=== PATIENT | male | born 1980 | race Hispanic/Latino ===

== ENCOUNTER 2018-09-03 19:46 | Emergency (ER) | payer OTHER ==
--- OUTSIDE RECORDS SUMMARY | 2018-09-03 19:48 | XMS REPORT | Clinical Summary ---
:1980 Author Organization [facility] Address [address] [place] [address] Care Team Providers Name Role Phone Tyler Sanches MD Primary Care Provider Allergies No Known Allergies Medications Medication Sig Dispensed Refills Start Date End Date Status folic acid (FOLVITE) 1 Take 1 tablet 30 tablet 0 08/15/2018 08/15/2019 Active MG tablet (1 mg total) by mouth daily. multivitamin with Take 1 tablet 30 tablet 0 08/15/2018 08/15/2019 Active minerals tablet by mouth daily. traMADol (ULTRAM) 50 Take 1 tablet 14 tablet 0 08/14/2018 08/21/2018 mg tablet (50 mg total) by mouth 2 (two) times a day as needed for severe pain for up to 7 days. azithromycin Take 1 tablet 4 tablet 0 08/14/2018 08/18/2018 (ZITHROMAX) 500 MG (500 mg total) tablet by mouth daily for 4 days. Active Problems Problem Noted Date Sickle cell pain crisis 08/11/2018 Encounters Date Type Specialty Care Team Description 08/11/2018 - Emergency General Internal Adilene Pereira Chest pain with minimal risk of acute coronary syndrome (Primary Dx); 08/14/2018 Medicine MD Froy Acute chest syndrome (HCC); Mo Cary Sickle cell pain crisis (HCC) MD Tamera after 09/02/2017 Social History Tobacco Use Types Packs/Day Years Used Date Never Smoker Smokeless Tobacco: Never Used Alcohol Use Drinks/Week oz/Week Comments No Alcohol Habits Answer Date Recorded How often do you have a drink containing alcohol? Never 08/11/2018 How many drinks containing alcohol do you have on a typical Not asked day when you are drinking? How often do you have six or more drinks on one occasion? Not asked Sex Assigned at Date Recorded Not on file Job Start Date Occupation Industry Not on file Not on file Not on file Travel History Travel Start Travel End No recent travel history available. Last Filed Vital Signs Vital Sign Reading Time Taken Blood Pressure 106/59 08/14/2018 12:15 PM [employer] Pulse 84 08/14/2018 12:15 PM [employer] Temperature 37 C (98.6 F) 08/14/2018 12:15 PM [employer] Respiratory Rate 18 08/14/2018 12:15 PM [employer] Oxygen Saturation 97% 08/14/2018 12:15 PM [employer] Inhaled Oxygen Concentration - - Weight 50.8 kg (111 lb 14.4 oz) 08/14/2018 4:30 AM [employer] Height 167.6 cm (5' 6") 08/11/2018 1:13 PM [employer] Body Mass Index 18.06 08/14/2018 4:30 AM [employer] Plan of Treatment Health Maintenance Due Date Last Done Comments INFLUENZA VACCINE 01/21/2018 Procedures Procedure Name Priority Date/Time Associated Comments Diagnosis SMEAR REVIEW Routine 08/12/2018 5:29 Results for this AM [employer] procedure are in the results section. ESTIMATED GFR Routine 08/12/2018 5:29 Results for this AM [employer] procedure are in the results section. COMPREHENSIVE METABOLIC Routine 08/12/2018 5:29 Results for this PANEL AM [employer] procedure are in the results section. HC COMPLETE BLD COUNT Routine 08/12/2018 5:29 Results for this W/AUTO DIFF AM [employer] procedure are in the results section. LIPID PANEL Routine 08/12/2018 5:29 Results for this AM [employer] procedure are in the results section. ECG 12-LEAD Routine 08/11/2018 4:35 PM [employer] TROPONIN Timed 08/11/2018 10:34 Results for this AM [employer] procedure are in the results section. ECG 12-LEAD Routine 08/11/2018 10:22 AM [employer] ECG ED PRELIMINARY Routine 08/11/2018 6:32 Results for this INTERPRETATION AM [employer] procedure are in the results section. URINALYSIS SCREEN AND STAT 08/11/2018 6:00 Results for this MICROSCOPY, WITH REFLEX AM [employer] procedure are in TO CULTURE the results section. URINE CULTURE STAT 08/11/2018 6:00 Results for this AM [employer] procedure are in the results section. XR CHEST 2 VW STAT 08/11/2018 5:51 Results for this AM [employer] procedure are in the results section. SMEAR REVIEW STAT 08/11/2018 5:30 Results for this AM [employer] procedure are in the results section. ESTIMATED GFR STAT 08/11/2018 5:30 Results for this AM [employer] procedure are in the results section. TYPE AND SCREEN Routine 08/11/2018 5:30 Results for this AM [employer] procedure are in the results section. B NATRIURETIC PEPTIDE STAT 08/11/2018 5:30 Results for this AM [employer] procedure are in the results section. TROPONIN STAT 08/11/2018 5:30 Results for this AM [employer] procedure are in the results section. LIPASE LEVEL STAT 08/11/2018 5:30 Results for this AM [employer] procedure are in the results section. COMPREHENSIVE METABOLIC STAT 08/11/2018 5:30 Results for this PANEL AM [employer] procedure are in the results section. RETICULOCYTE COUNT STAT 08/11/2018 5:30 Results for this AM [employer] procedure are in the results section. PARTIAL THROMBOPLASTIN STAT 08/11/2018 5:30 Results for this TIME (PTT) AM [employer] procedure are in the results section. PROTHROMBIN TIME WITH STAT 08/11/2018 5:30 Results for this INR AM [employer] procedure are in the results section. HC COMPLETE BLD COUNT STAT 08/11/2018 5:30 Results for this W/AUTO DIFF AM [employer] procedure are in the results section. ECG 12-LEAD STAT 08/11/2018 4:57 AM [employer] after 09/02/2017 Results Smear review (08/12/2018 5:29 AM [employer])Only the most recent of2 resultswithin the time period is included. Platelet slide review Increased (A) [facility] Anisocytosis Marked (A) [facility] Polychromasia Marked (A) [facility] Schistocytes Occasional [facility] Target cells Moderate (A) [facility] Spherocytes Occasional [facility] Ovalocytes Moderate [facility] Sickle cells Moderate (A) [facility] [place] bodies Occasional [facility] Enlarged platelets Moderate (A) [facility] Giant platelets Occasional [facility] Hemoglobin C crystals Occasional (A) [facility] Folded RBCs Moderate (A) [facility] Toxic granulation Slight [facility] Performing Organization Address City/State/Zipcode Phone Number [facility] DEPARTMENT OF PATHOLOGY [id number] [place] [address] AND [facility] [id number] [place] [address] Estimated GFR (08/12/2018 5:29 AM [employer])Only the most recent of2 resultswithin the time period is included. Estimated GFR >=90 mL/min/1.73 m2 [facility] Comment: [facility] CatergoryUnitsInterpretation G1 >=90 Normal or high G2 60-89Mildly decreased [id number] to moderately decreased [id number] to severely decreased G4 15-29Severely decreased G5 <15Kidney failure The eGFR was calculated using the Chronic Kidney Disease Epidemiology Collaboration (CKD-EPI) equation. Interpretation is based on recommendations of the National Kidney Foundation-Kidney Disease Outcomes Quality Initiative (NKF-KDOQI) published in 2014. Specimen Plasma specimen Performing Organization Address City/State/Zipcode Phone Number [facility] DEPARTMENT OF PATHOLOGY [address] [place] [address] CBC with platelet and differential (08/12/2018 5:29 AM [employer])Only the most recent of2 resultswithin the time period is included. WBC 17.8 (H)Comment: WBC 4.5 - 11.0 k/uL [facility] SUGAR was corrected for NRBCs [facility] RBC 1.64 (L) 4.40 - 6.00 m/uL [facility] HGB 6.2 (LL) 14.0 - 18.0 g/dL [facility] Comment: [facility] Called Hgb and Hct results with readback to Emily Neal 08/12/2018 06:16 HCT 18.0 (LL) 41.0 - 51.0 % [facility] MCV 109.8 (H) 82.0 - 100.[address] [facility] MCH 37.8 (H) 27.0 - 34.[address] [facility] MCHC 34.4 31.0 - 37.0 g/dL [facility] RDW - SD 77.0 (H) 37.0 - 55.[address] [facility] MPV 11.0 6.9 - 11.[address] [facility] Platelet count 538 (H) 150 - 400 K/uL [facility] Nucleated RBC 1.60 /[address] [facility] Neutrophils 70.3 (H) 39.0 - 69.0 % [facility] Lymphocytes 15.2 (L) 25.0 - 45.0 % [facility] Monocytes 9.3 0.0 - 10.0 % [facility] Eosinophils 4.5 0.0 - 5.0 % [facility] Basophils 0.1 0.0 - 1.0 % [facility] Immature granulocytes 0.6 0.0 - 1.0 % [facility] Specimen Blood Performing Organization Address City/State/Zipcode Phone Number [facility] DEPARTMENT OF PATHOLOGY [address] [place] [address] AND GENOMIC MEDICINE [facility] [address] [place] [address] HOSPITAL Lipid panel (08/12/2018 5:29 AM [employer]) Cholesterol 125 0 - 199 mg/dL [facility] Triglycerides 101 0 - 149 mg/dL [facility] HDL cholesterol 44 40 - 99,999 [facility]/dL [facility] LDL cholesterol 80 0 - 99 mg/dL [facility] Lipid panel See below [facility] interpretation Comment: [facility] Total Cholesterol (mg/dL) <200 Desirable 071-807Howhowpikl-kylu >=240High Triglycerides (mg/dL) <150 Normal 468-305Pqdeyempok-rkee 200-499High >=500Very high HDL Cholesterol (mg/dL) <40Low (male) <50Low (female) LDL Cholesterol (mg/dL) <100 Optimal 100-129Near or above optimal 735-629Lworzvgijb-fmrw 160-189High >=190Very high Risk Catergories that modify LDL goals. Risk CatergoriesLDL goal (mg/dL) CHD and CHD risk equivalent<100 (10-year risk >20%) Multiple (2+) risk factors <130 (10-year risk=<20%) 0-1 risk factors <160 (<10-year risk) Defining levels of lipids in metabolic syndrome Triglycerides>=150 mg/dL HDL Cholesterol Men<40 mg/dL Women<50 mg/dL Non-HDL cholesterol is a second target for therapy in persons with high triglycerides (>=200 mg/dL) Specimen Plasma specimen Performing Organization Address City/State/Zipcode Phone Number [facility] DEPARTMENT OF PATHOLOGY [address] [place] [address] AND GENOMIC MEDICINE [address] Comprehensive metabolic panel (08/12/2018 5:29 AM [employer])Only the most recent of2 resultswithin the time period is included. Sodium 141 135 - 148 mEq/L [facility] Potassium 4.8 3.5 - 5.0 mEq/L [facility] Chloride 108 98 - 112 mEq/L [facility] CO2 22 (L) 24 - 31 mEq/L [facility] Anion gap 11@ANIO 7 - 15 mEq/L [facility] BUN 7 6 - 20 mg/dL [facility] Creatinine 0.57 (L) 0.70 - 1.20 mg/dL [facility] Glucose 111 (H) 65 - 99 mg/dL [facility] Calcium 9.4 8.3 - 10.2 mg/dL [facility] Protein 6.9 6.3 - 8.3 g/dL [facility] Albumin 4.3 3.5 - 5.0 g/dL [facility] A/G ratio 1.7 0.7 - 3.[address] [facility] Alkaline phosphatase 100 40 - 129 U/L [facility] AST 38 10 - 50 U/L [facility] ALT 15 5 - 50 U/L [facility] Total bilirubin 2.9 (H) 0.2 - 1.2 mg/dL [facility] Specimen Plasma specimen Performing Organization Address City/State/Zipcode Phone Number [facility] DEPARTMENT OF PATHOLOGY [address] [place] [address] AND GENOMIC MEDICINE [facility] [address] [place] [address] HOSPITAL Troponin (08/11/2018 10:34 AM [employer])Only the most recent of2 resultswithin the time period is included. Troponin <0.30 0.00 - 0.30 ng/mL [facility] Comment: HOSPITAL 0.11 - 1.49 ng/mlMay indicate increased risk of acute coronary syndrome. >=1.5 ng/mlConsistent with acute myocardial infarction. The diagnostic value of a single normal or non-diagnostic result is questionable.Serial samples at 2-6 hour intervals are required to rule out acute myocardial injury. Specimen Plasma specimen Performing Organization Address City/State/Zipcode Phone Number [facility] DEPARTMENT OF PATHOLOGY [address] [place] [address] AND GENOMIC MEDICINE [facility] [id number] ECG ED Preliminary Interpretation - Not an Order (08/11/2018 6:32 AM [employer]) Narrative Performed At Adilene Pereira MD 08/11/2018 11:25 AM ECG ED Preliminary Interpretation - Not an Order Performed by: Adilene Pereira MD Authorized by: Adilene Pereira MD ECG reviewed by ED Physician in the absence of a software packager: yes Previous ECG: Previous ECG:Unavailable Interpretation: Interpretation: normal Rate: ECG rate:81 ECG rate assessment: normal Rhythm: Rhythm: sinus rhythm Ectopy: Ectopy: none QRS: QRS axis:Normal QRS intervals:Normal Conduction: Conduction: normal ST segments: ST segments:Normal T waves: T waves: normal Urinalysis screen and microscopy, with reflex to culture (08/11/2018 6:00 AM [employer]) Specimen site Clean catch [facility] Color, UA Yellow [facility] Appearance, UA Clear [facility] Specific gravity, UA 1.010 1.001 - 1.[address] [facility] pH, UA 6.0 5.0 - 9.[address] [facility] Protein, UA Negative Negative [facility] Glucose, UA Negative Negative [facility] Ketones, UA Trace (A) Negative [facility] Bilirubin, UA Negative Negative [facility] Blood, UA Negative Negative [facility] Nitrite, UA Negative Negative [facility] Urobilinogen, UA <2.0 <2.0 E.U./dL [facility] Leukocyte esterase, UA Negative Negative [facility] Round epithelial cells, UA <1 0 - 5 /HPF [facility] WBC, UA 1 0 - 1 /HPF [facility] RBC, UA None seen 0 - 5 /HPF [facility] Bacteria, UA None seen None seen [facility] Yeast, UA None seen [facility] Yeast with pseudohyphae, UA None seen [facility] Specimen Urine Performing Organization Address City/State/Zipcode Phone Number [facility] DEPARTMENT OF PATHOLOGY [id number] [place] [address] AND [facility] [id number] [place] [address] Urine culture (08/11/2018 6:00 AM [employer]) Urine culture SEE COMMENTComment: Bacteriuria [facility] screen negative. HOSPITAL Performing Organization Address City/[facility] Cent[facility]ode Phone Number [facility] DEPARTMENT OF PATHOLOGY [id number] [place] [address] AND [facility] [id number] [place] [address] XR Chest 2 Vw (08/11/2018 5:51 AM [employer]) Narrative Performed At EXAMINATION:XR CHEST 2 VW RADIANT CLINICAL HISTORY: 38 years Male chest pain [facility] COMPARISON: 08/01/2013 IMPRESSION: 1.Heart size is at the upper limits of normal to minimally prominent. The central vasculature is normal. A previous left chest port has been removed. 2.There is some very mild nonspecific interstitial prominence in the mid lungs and bases, right greater than left. No confluent consolidation or effusion. The lungs are adequately inflated. 3.Cholecystectomy clips. Bony changes in the vertebral bodies related to patient's sickle cell disease. [facility]-[id number] Procedure Note Hm Interface, Radiology Results Incoming - 08/11/2018 6:02 AM [employer] EXAMINATION: XR CHEST 2 VW CLINICAL HISTORY: 38 years Male chest pain [facility] COMPARISON: 08/01/2013 IMPRESSION: 1. Heart size is at the upper limits of normal to minimally prominent. The central vasculature is normal. A previous left chest port has been removed. 2. There is some very mild nonspecific interstitial prominence in the mid lungs and bases, right greater than left. No confluent consolidation or effusion. The lungs are adequately inflated. 3. Cholecystectomy clips. Bony changes in the vertebral bodies related to patient's sickle cell disease. [facility]-[id number] Performing Organization Address City/[facility]/Zipcode Phone Number [facility] [address] [place] [address] Partial thromboplastin time, activated (08/11/2018 5:30 AM [employer]) PTT 42.1 (H) 23.0 - 36.0 sec [facility] Comment: [facility] PTT therapeutic range for unfractionated heparin is 61.0-112.0 seconds which corresponds to Anti-Xa 0.3-0.7 U/ml. Specimen Blood Performing Organization Address [facility]/Zipcode Phone Number [facility] DEPARTMENT OF PATHOLOGY [address] [place] [address] Prothrombin time with INR (08/11/2018 5:30 AM [employer]) Prothrombin time 14.6 (H) 11.5 - 14.[address] [facility] INR 1.2 [facility] Comment: [facility] The International Normalized Ratio (INR) is a therapeutic monitoring tool for patients who are stable on oral anticoagulant therapy. An INR of 2.0-3.0 is suggested for deep vein thrombosis/pulmonary embolism. Specimen Blood Performing Organization Address [facility] Centercotn Phone Number [facility] DEPARTMENT OF PATHOLOGY [address] [place] [address] Reticulocyte count (08/11/2018 5:30 AM [employer]) Retic %, auto 28.0 (A) 0.5 - 2.1 % [facility] Retic absolute, auto 0.5745 (H) 0.0220 - 0.1260 m/uL [facility] Specimen Blood Performing Organization Address [facility] Centercode Phone Number [facility] DEPARTMENT OF PATHOLOGY [address] [place] [address] [place] [address] HOSPITAL Type and screen (08/11/2018 5:30 AM [employer]) ABO grouping O [facility] Rh type POS [facility] Antibody screen (gel) NEG [facility] Specimen Blood Performing Organization Address City/[facility]/Zipcode Phone Number [facility] DEPARTMENT OF PATHOLOGY [address] [place] [address] [place] [address] HOSPITAL B natriuretic peptide (08/11/2018 5:30 AM [employer]) BNP 49 0 - 100 pg/mL [facility] Specimen Blood Performing Organization Address City/State/Zipcode Phone Number [facility] DEPARTMENT OF PATHOLOGY [address] [place] [address] Lipase level (08/11/2018 5:30 AM [employer]) Lipase 13 13 - 60 U/L [facility] Specimen Plasma specimen Performing Organization Address City/[facility] Centercode Phone Number [facility] DEPARTMENT OF PATHOLOGY [address] [place] [address] [place] [address] HOSPITAL after 09/02/2017 Insurance Payer Benefit Plan / Group Subscriber ID Type Phone Address MEDICARE MEDICARE PART A AND B xxxxxxxxxx Medicare [place], [place]
--- OUTSIDE RECORDS SUMMARY | 2018-09-03 19:49 | XMS REPORT ---
:1980 Author Organization [facility] Address [address] [place] [address] Dr. Gillis [address] [place] [id number] Care Team Providers Name Role Phone DR SHYLA ESPINOZA Unavailable Unavailable MAYTE PHILLIP Unavailable Unavailable DR BRUNO BELCHER Unavailable Unavailable Problems This patient has no known problems. Allergies, Adverse Reactions, Alerts This patient has no known allergies or adverse reactions. Medications This patient has no known medications. Encounters Start End Encounter Admission Attending Care Care Encounter Date/Time Date/Time Type Type Clinicians Facility Department ID 2018-02-17 2018-02-18 Inpatient E [facility] [id number] 11:41:00 17:12:00 SHYLA 2017-09-11 2017-09-11 Emergency [facility] [id number] 19:00:00 21:26:00 MAYTE 2016-10-16 2016-10-16 Emergency E [facility] [id number] 10:10:00 10:47:00 WASIM Results Test Description Test Time Test Comments Text Results Atomic Results Result Comments BLOOD CULTURE 2018-02-23 07:57:00 Test Item Value Reference Range Comments Culture Observations (test code=COB1) NO GROWTH AFTER 5 DAYS BLOOD [id number] 07:57:00 Test Item Value Reference Range Comments Culture Observations (test code=COB1) NO GROWTH AFTER 5 DAYS BASIC METABOLIC PANEL *WW*2018-02-18 10:29:00 Test Item Value Reference Range Comments GLUCOSE (test code=06D) 96 mg/dL 75-100 SODIUM (test code=01A) 143 mmol/L 136-145 POTASSIUM (test code=01B) 3.5 mmol/L 3.6-5.1 CHLORIDE (test code=04A) 112 mmol/L 98-107 CO2 (test code=02A) 21 mmol/L 22-32 ANION GAP (test code=ANG) 13.7 mmol/L BUN (test code=05D) 5 mg/dL 7-18 CREATININE (test code=03E) 0.4 mg/dL 0.7-1.3 BUN/CREA (test code=BCR) 12 12-20 CALCIUM (test code=09D) 8.0 mg/dL 8.3-9.5 CBC (INCLUDES AUTOMATED DIFFERENTIAL)*[id number] 10:21:00 Test Item Value Reference Range Comments WBC (test code=WBC) 17.4 10\S\3/uL 4.5-11.0 RBC (test code=RBC) 1.54 10\S\6/uL 4.30-5.70 HGB (test code=HBG) 5.8 g/dL 14.0-18.0 HCT (test code=HCT) 15.9 % 35.0-46.0 MCV (test code=MCV) 103.2 fL 80.0-94.0 MCH (test code=MCH) 37.7 pg 27.0-31.0 MCHC (test code=MCHC) 36.5 g/dL 32.0-36.0 RDW (test code=RDW) 16.9 % 11.5-14.5 PLT (test code=PLT) 390 10\S\3/uL 130-400 MPV (test code=MPV) 10.6 fL 9.4-12.4 NEUTROP # (test code=NE#) 13.4 10\S\3/uL 2.0-8.0 LYMPH # (test code=LY#) 2.0 10\S\3/uL 1.2-4.0 MONOCYTE # (test code=MO#) 1.2 10\S\3/uL 0.0-1.1 EOSINOPH # (test code=EO#) 0.7 10\S\3/uL 0.0-0.7 BASOPHIL # (test code=BA#) 0.0 10\S\3/uL 0.0-0.3 IG # (test code=IG#) 0.12 10\S\3/uL 0.00-0.06 NRBC # (test code=NRBC#) 0.54 10\S\3/uL 0.00-0.01 NEUTROPH % (test code=NE%) 77.1 % 35.0-73.0 LYMPH % (test code=LY%) 11.5 % 20.0-55.0 MONO % (test code=MO%) 6.7 % 2.5-10.0 EOSINOPH % (test code=EO%) 3.9 % 0.0-5.0 BASOPHIL % (test code=BA%) 0.1 % 0.0-2.0 IG % (test code=IG%) 0.7 % 0.0-0.8 NRBC% (test code=NRBC%) 3.1 % 0.0-0.2 MANDIFF (test code=WMDIFF) NO NO RBC MORPH (test code=WRBCMOR) NORMAL LDH-LACTIC DEHYDROGENASE WW2018-02-17 06:49:00 Test Item Value Reference Range Comments LDH (test code=33A) 721 IU/L 100-190 COMPREHENSIVE METABOLIC JANG *WW*2018-02-17 05:37:00 Test Item Value Reference Range Comments GLUCOSE (test code=06D) 128 mg/dL 75-100 SODIUM (test code=01A) 144 mmol/L 136-145 POTASSIUM (test code=01B) 3.5 mmol/L 3.6-5.1 CHLORIDE (test code=04A) 113 mmol/L 98-107 CO2 (test code=02A) 22 mmol/L 22-32 ANION GAP (test code=ANG) 12.7 mmol/L BUN (test code=05D) 9 mg/dL 7-18 CREATININE (test code=03E) 0.5 mg/dL 0.7-1.3 BUN/CREA (test code=BCR) 19 12-20 CALCIUM (test code=09D) 7.8 mg/dL 8.3-9.5 BILI TOTAL (test code=11A) 3.4 mg/dL 0.2-1.0 PROTEIN (test code=07D) 6.5 g/dL 6.4-8.2 ALBUMIN (test code=08D) 3.7 g/dL 3.5-4.8 GLOBULIN (test code=GLB) 2.8 g/dL 1.5-3.8 ALB/GLOB (test code=AGRR) 1.3 1.0-2.6 ALK PHOS (test code=35A) 87 IU/L 42-121 AST (test code=30A) 59 IU/L <=42 ALT (test code=31A) 25 IU/L <=78 CBC (INCLUDES AUTOMATED DIFFERENTIAL)*[id number] 04:54:00 Test Item Value Reference Range Comments WBC (test code=WBC) 21.9 10\S\3/uL 4.5-11.0 RBC (test code=RBC) 1.50 10\S\6/uL 4.30-5.70 HGB (test code=HBG) 5.6 g/dL 14.0-18.0 HCT (test code=HCT) 15.7 % 35.0-46.0 MCV (test code=MCV) 104.7 fL 80.0-94.0 MCH (test code=MCH) 37.3 pg 27.0-31.0 MCHC (test code=MCHC) 35.7 g/dL 32.0-36.0 RDW (test code=RDW) 18.1 % 11.5-14.5 PLT (test code=PLT) 390 10\S\3/uL 130-400 MPV (test code=MPV) 10.3 fL 9.4-12.4 NEUTROP # (test code=NE#) 19.6 10\S\3/uL 2.0-8.0 LYMPH # (test code=LY#) 0.9 10\S\3/uL 1.2-4.0 MONOCYTE # (test code=MO#) 1.1 10\S\3/uL 0.0-1.1 EOSINOPH # (test code=EO#) 0.1 10\S\3/uL 0.0-0.7 BASOPHIL # (test code=BA#) 0.0 10\S\3/uL 0.0-0.3 IG # (test code=IG#) 0.16 10\S\3/uL 0.00-0.06 NRBC # (test code=NRBC#) 0.88 10\S\3/uL 0.00-0.01 NEUTROPH % (test code=NE%) 89.4 % 35.0-73.0 LYMPH % (test code=LY%) 4.2 % 20.0-55.0 MONO % (test code=MO%) 5.2 % 2.5-10.0 EOSINOPH % (test code=EO%) 0.4 % 0.0-5.0 BASOPHIL % (test code=BA%) 0.1 % 0.0-2.0 IG % (test code=IG%) 0.7 % 0.0-0.8 NRBC% (test code=NRBC%) 4.0 % 0.0-0.2 MANDIFF (test code=WMDIFF) NO NO RBC MORPH (test code=WRBCMOR) NORMAL CBC (INCLUDES AUTOMATED DIFFERENTIAL)*[id number] 03:45:00 Test Item Value Reference Range Comments WBC (test code=WBC) 21.4 10\S\3/uL 4.5-11.0 RBC (test code=RBC) 1.49 10\S\6/uL 4.30-5.70 HGB (test code=HBG) 5.5 g/dL 14.0-18.0 HCT (test code=HCT) 15.7 % 35.0-46.0 MCV (test code=MCV) 105.4 fL 80.0-94.0 MCH (test code=MCH) 36.9 pg 27.0-31.0 MCHC (test code=MCHC) 35.0 g/dL 32.0-36.0 RDW (test code=RDW) 18.4 % 11.5-14.5 PLT (test code=PLT) 380 10\S\3/uL 130-400 MPV (test code=MPV) 10.6 fL 9.4-12.4 NEUTROP # (test code=NE#) 18.6 10\S\3/uL 2.0-8.0 LYMPH # (test code=LY#) 1.1 10\S\3/uL 1.2-4.0 MONOCYTE # (test code=MO#) 1.2 10\S\3/uL 0.0-1.1 EOSINOPH # (test code=EO#) 0.2 10\S\3/uL 0.0-0.7 BASOPHIL # (test code=BA#) 0.0 10\S\3/uL 0.0-0.3 IG # (test code=IG#) 0.15 10\S\3/uL 0.00-0.06 NRBC # (test code=NRBC#) 0.85 10\S\3/uL 0.00-0.01 NEUTROPH % (test code=NE%) 87.3 % 35.0-73.0 LYMPH % (test code=LY%) 5.1 % 20.0-55.0 MONO % (test code=MO%) 5.8 % 2.5-10.0 EOSINOPH % (test code=EO%) 1.0 % 0.0-5.0 BASOPHIL % (test code=BA%) 0.1 % 0.0-2.0 IG % (test code=IG%) 0.7 % 0.0-0.8 NRBC% (test code=NRBC%) 4.0 % 0.0-0.2 MANDIFF (test code=WMDIFF) NO NO RBC MORPH (test code=WRBCMOR) NORMAL XR PICC LINE INSERTION PNL*WW*2018-02-16 17:29:37EXAMINATION: Fluoroscopic and ultrasound-guided PICC line placement.LOCATION: D4.HISTORY: R09.89: OTHER SPECIFIED SYMPTOMS AND SIGNS INVOLVING THE CIRCULATORYAND RESPIRATORY SYSTEMSSEDATION: The patient did not require conscious sedation for the procedure.RADIATION DOSE: Fluoroscopy time:18 sec. Images obtained: 1.ANTIBIOTICS: None. Not indicated.TECHNIQUE: The risks, benefits, and alternatives were discussed and informedconsent was obtained. Prior to beginning the procedure, Agate Protocol wasused to confirm the patient's identity and planned procedure. Maximum sterilebarriers including cap, mask, hand hygiene, sterile gloves, sterile gown, largesterile drape and cutaneous antisepsis wereused.The skin over the right basilic vein was sterilely prepped, draped, andinfiltrated with lidocaine.Prior to the procedure, the target vessel was evaluated by ultrasound. Animage of the patent vessel was recorded and saved to PACS. After sterile prep,this vessel was accessed with a micropuncture needle using real-time ultrasoundguidance. A guidewire and catheter were then passed centrally usingfluoroscopicguidance. The intravascular length from the access site to the right atriumwas assessed. The catheter was trimmed at 34 cm.After dilating the tract, a dual lumen PICC was inserted over theguidewire andthrough a peel away sheath. The catheter was flushed and secured in place withnonabsorbable suture. A sterile dressing was applied. ESTIMATED BLOOD LOSS: Less than 10 milliliters.COMPLICATIONS: None.DISCHARGED TO: Inpatient unit.FINDINGS: Ultrasound demonstrates a patent right basilic vein.The final fluoroscopic image demonstrates the catheter with its tip at thecavoatrial junction / upper right atrium. No complications are seen.IMPRESSION: Successful non-tunneled right upper extremity PICC line placement.PLAN: The catheter is ready for immediate use. When treatment is completed,this catheter can be removed at the bedside according to standard hospitalprotocol.U/S GUIDANCE*WW*2018-02-16 17:29:37EXAMINATION: Fluoroscopic and ultrasound-guided PICC line placement.LOCATION: D4.HISTORY: R09.89: OTHER SPECIFIED SYMPTOMS AND SIGNS INVOLVING THE CIRCULATORYAND RESPIRATORY SYSTEMSSEDATION: The patient did not require conscious sedation for the procedure.RADIATION DOSE: Fluoroscopy time:18 sec. Images obtained: 1.ANTIBIOTICS: None. Not indicated.TECHNIQUE: The risks, benefits, and alternatives were discussed and informedconsent was obtained. Prior to beginning the procedure, Agate Protocol wasused to confirm the patient's identity and planned procedure. Maximum sterilebarriers including cap, mask, hand hygiene, sterile gloves, sterile gown, largesterile drape and cutaneous antisepsis wereused.The skin over the right basilic vein was sterilely prepped, draped, andinfiltrated with lidocaine.Prior to the procedure, the target vessel was evaluated by ultrasound. Animage of the patent vessel was recorded and saved to PACS. After sterile prep,this vessel was accessed with a micropuncture needle using real-time ultrasoundguidance. A guidewire and catheter were then passed centrally usingfluoroscopicguidance. The intravascular length from the access site to the right atriumwas assessed. The catheter was trimmed at 34 cm.After dilating the tract, a dual lumen PICC was inserted over theguidewire andthrough a peel away sheath. The catheter was flushed and secured in place withnonabsorbable suture. A sterile dressing was applied. ESTIMATED BLOOD LOSS: Less than 10 milliliters.COMPLICATIONS: None.DISCHARGED TO: Inpatient unit.FINDINGS: Ultrasound demonstrates a patent right basilic vein.The final fluoroscopic image demonstrates the catheter with its tip at thecavoatrial junction / upper right atrium. No complications are seen.IMPRESSION: Successful non-tunneled right upper extremity PICC line placement.PLAN: The catheter is ready for immediate use. When treatment is completed,this catheter can be removed at the bedside according to standard hospitalprotocol.URINALYSIS WITH MICRO 2018-02-16 09:20:00 Test Item Value Reference Range Comments COLOR (test code=COLU) YELLOW YELLOW CLARITY (test code=CLA) SLT HAZY CLEAR GLUCOSE UR (test code=UA GLUCOSE) NEGATIVE NEGATIVE BILI UR (test code=BILE) 1+ NEGATIVE KETONES UR (test code=GLYNN) NEGATIVE NEGATIVE SP GRAVITY (test code=SPGR) 1.015 1.005-1.030 PH UR (test code=PH) 6.0 4.5-8.0 PROTEIN UR (test code=PU) TRACE NEGATIVE UROBIL UR (test code=UROQ) 0.2 EU/dL 0.2-1.0 NITRITE UR (test code=NITRITE) NEGATIVE NEGATIVE BLOOD UR (test code=UA BLOOD) TRACE-LYSED NEGATIVE LEUK ES UR (test code=LEUK) NEGATIVE NEGATIVE WBC UR (test code=UWBC) 0 /HPF 0-3 RBC UR (test code=URBC) 3 /HPF 0-2 EPITH UR (test code=UEPC) NONE /LPF NONE BACTERIA UR (test code=UBACT) FEW /HPF NONE CAST UR (test code=CAST) /LPF NONE CRYSTAL UR (test code=CRYU) / LPF NONE MUCUS UR (test code=MUC) / HPF NONE AMORPH UR (test code=DARRYL) / HPF NONE TRICH UR (test code=UTRICH) /HPF NONE YEAST UR (test code=UY) /HPF NONE SPERM UR (test code=USPERM) /HPF NONE CBC WITH MANUAL DIFF 2018-02-16 08:58:00 Test Item Value Reference Range Comments WBC (test code=WBC) 33.0 10\S\3/uL 4.5-11.0 RBC (test code=RBC) 1.86 10\S\6/uL 4.30-5.70 HGB (test code=HBG) 7.0 g/dL 14.0-18.0 HCT (test code=HCT) 19.2 % 35.0-46.0 MCV (test code=MCV) 103.2 fL 80.0-94.0 MCH (test code=MCH) 37.6 pg 27.0-31.0 MCHC (test code=MCHC) 36.5 g/dL 32.0-36.0 RDW (test code=RDW) 19.4 % 11.5-14.5 PLT (test code=PLT) 390 10\S\3/uL 130-400 MPV (test code=MPV) 11.3 fL 9.4-12.4 NEUTROP # (test code=NE#) 26.2 10\S\3/uL 2.0-8.0 LYMPH # (test code=LY#) 3.5 10\S\3/uL 1.2-4.0 MONOCYTE # (test code=MO#) 2.1 10\S\3/uL 0.0-1.1 EOSINOPH # (test code=EO#) 0.7 10\S\3/uL 0.0-0.7 BASOPHIL # (test code=BA#) 0.1 10\S\3/uL 0.0-0.3 IG # (test code=IG#) 0.46 10\S\3/uL 0.00-0.06 NRBC # (test code=NRBC#) 0.51 10\S\3/uL 0.00-0.01 NEUTROPH % (test code=NE%) 79.4 % 35.0-73.0 LYMPH % (test code=LY%) 10.5 % 20.0-55.0 MONO % (test code=MO%) 6.5 % 2.5-10.0 EOSINOPH % (test code=EO%) 2.0 % 0.0-5.0 BASOPHIL % (test code=BA%) 0.2 % 0.0-2.0 IG % (test code=IG%) 1.4 % 0.0-0.8 NRBC% (test code=NRBC%) 1.5 % 0.0-0.2 MAN DIFF (test code=HMDIFF) MANUAL DIFFERENTIAL SEG (test code=SEG) 77 % 42-75 BAND (test code=BAND) 0 % 0-8 LYMPH (test code=LYMPH) 15 % 20-51 MONO (test code=MONO) 5 % 3-11 EOS (test code=EOS) 3 % <=10 BASO (test code=BASO) 0 % 0-2 NRBC (test code=NRBC.) 4 /100 WBC 0-0 RBC MORPH (test code=RBCMORN) ABNORMAL NORMAL PLT EST (test code=PLTEST) ADEQUATE ADEQUATE PLT MORPH (test code=PLTMOR) NORMAL (1.5-3 um) NORMAL ANISO (test code=ANISO) 2+ NONE POIK (test code=POIK) 2+ NONE MACRO (test code=MACRO) 1+ NONE POLYCHROM (test code=POLY) 1+ NONE TARGET (test code=TARG) 1+ NONE SICKLE CELL (test code=SICKC) 1+ NONE SPHERO (test code=SPHC) 1+ NONE OVALOCYTES (test code=OVA) 1+ NONE TEAR DROP (test code=TD) 1+ NONE XR CHEST 1 VIEW PORTABLE *[facility]2018-02-16 08:48:39Portable AP chest, 1 viewLocation Code: [id number] HISTORY: DyspneaCOMPARISON: NoneCOMMENT: The lungs are clear. The costophrenic angles are sharp. The cardiomediastinalsilhouette is stable. The bonesare intact.IMPRESSION: Stable chest with no acute abnormality.COMPREHENSIVE METABOLIC JANG *[facility]2018-02-16 08:48 :00 Test Item Value Reference Range Comments GLUCOSE (test code=06D) 140 mg/dL 75-100 SODIUM (test code=01A) 141 mmol/L 136-145 POTASSIUM (test code=01B) 4.1 mmol/L 3.6-5.1 CHLORIDE (test code=04A) 110 mmol/L 98-107 CO2 (test code=02A) 21 mmol/L 22-32 ANION GAP (test code=ANG) 13.8 mmol/L BUN (test code=05D) 16 mg/dL 7-18 CREATININE (test code=03E) 0.8 mg/dL 0.7-1.3 BUN/CREA (test code=BCR) 21 12-20 CALCIUM (test code=09D) 8.4 mg/dL 8.3-9.5 BILI TOTAL (test code=11A) 4.4 mg/dL 0.2-1.0 PROTEIN (test code=07D) 7.9 g/dL 6.4-8.2 ALBUMIN (test code=08D) 5.0 g/dL 3.5-4.8 GLOBULIN (test code=GLB) 2.9 g/dL 1.5-3.8 ALB/GLOB (test code=AGRR) 1.7 1.0-2.6 ALK PHOS (test code=35A) 109 IU/L 42-121 AST (test code=30A) 100 IU/L <=42 ALT (test code=31A) 32 IU/L <=78 CARDIAC PROFILE 2018-02-16 08:40:00 Test Item Value Reference Range Comments TROPONIN I (test code=A84) <0.015 ng/mL 0.000-0.045 CKMB (test code=A49) <1.0 ng/mL <=3.6 CPK (test code=32A) 93 IU/L 39-308 RETIC COUNT WW2018-02-16 08:35:00 Test Item Value Reference Range Comments RET% (test code=RET) 28.97 % 0.26-1.60 RET_# (test code=RET#) 0.53 X10\S\6/uL 0.01-0.07 HCT (test code=HCT) 18.8 % 35.0-46.0 RBC (test code=RBC) 1.82 10\S\6/uL 4.30-5.70 RET_COR (test code=RETC) 13.00 % 0.26-1.60 CBC WITH MORPHOLOGY *WW*2017-09-11 20:17:00 Test Item Value Reference Range Comments WBC (test code=WBC) 14.6 10\S\3/uL 4.5-11.0 RBC (test code=RBC) 2.21 10\S\6/uL 4.30-5.70 HGB (test code=HBG) 7.9 g/dL 14.0-18.0 HCT (test code=HCT) 22.5 % 35.0-46.0 MCV (test code=MCV) 101.8 fL 80.0-94.0 MCH (test code=MCH) 35.7 pg 27.0-31.0 MCHC (test code=MCHC) 35.1 g/dL 32.0-36.0 RDW (test code=RDW) 21.4 % 11.5-14.5 PLT (test code=PLT) 603 10\S\3/uL 130-400 MPV (test code=MPV) 10.5 fL 9.4-12.4 NEUTROP # (test code=NE#) 11.6 10\S\3/uL 2.0-8.0 LYMPH # (test code=LY#) 2.0 10\S\3/uL 1.2-4.0 MONOCYTE # (test code=MO#) 1.0 10\S\3/uL 0.0-1.1 EOSINOPH # (test code=EO#) 0.0 10\S\3/uL 0.0-0.7 BASOPHIL # (test code=BA#) 0.0 10\S\3/uL 0.0-0.3 IG # (test code=IG#) 0.06 10\S\3/uL 0.00-0.06 NRBC # (test code=NRBC#) 0.21 10\S\3/uL 0.00-0.01 NEUTROPH % (test code=NE%) 79.1 % 35.0-73.0 LYMPH % (test code=LY%) 13.3 % 20.0-55.0 MONO % (test code=MO%) 6.8 % 2.5-10.0 EOSINOPH % (test code=EO%) 0.1 % 0.0-5.0 BASOPHIL % (test code=BA%) 0.3 % 0.0-2.0 IG % (test code=IG%) 0.4 % 0.0-0.8 NRBC% (test code=NRBC%) 1.4 % 0.0-0.2 PLT EST (test code=PLTEST) INCREASED ADEQUATE PLT MORPH (test code=PLTMOR) NORMAL (1.5-3 um) NORMAL ANISO (test code=ANISO) 2+ NONE POIK (test code=POIK) 1+ NONE MICROCYTIC (test code=MICRO) 1+ NONE MACRO (test code=MACRO) 1+ NONE POLYCHROM (test code=POLY) 1+ NONE SICKLE CELL (test code=SICKC) 1+ NONE SPHERO (test code=SPHC) 1+ NONE OVALOCYTES (test code=OVA) 1+ NONE XR CHEST 2 VIEW 2017-09-11 20:11:21Exam: Chest x-ray 2 viewsHISTORY: Chest painLocation: [id number]:The heart size is at the upper limits of normal with mild central congestionsimilar to 12/10/13. Osseous structures are intact.IMPRESSION:Borderline cardiomegaly with mild central congestion.PRO TIME AND PTT 2017-09-11 20:11:00 Test Item Value Reference Range Comments PT (test code=TT) 14.7 s 9.8-13.6 INR (test code=INR) 1.3 INRH (test code=INRH) SUGGESTED THERAPEUTIC RANGE FOR INR: 2.5 - 3.5 For Patients with Prosthetic Valves or Patients with recurrent Thromboembolic Events 2.0 - 3.0 For Most Other Applications PTT (test code=PTT) 18.4 s 20.2-38.0 PTTH (test code=PTTH) To monitor the effectiveness of heparin, we offer the Anti-Xa (Heparin Assay). It can be used for either unfractionated or LMW Heparin. Order Code is ANTI-XA URINALYSIS WITH MICRO 2017-09-11 20:04:00 Test Item Value Reference Range Comments COLOR (test code=COLU) LEILANI YELLOW CLARITY (test code=CLA) SLT HAZY CLEAR GLUCOSE UR (test code=UA GLUCOSE) Negative NEGATIVE BILI UR (test code=BILE) 2+ NEGATIVE KETONES UR (test code=GLYNN) Trace NEGATIVE SP GRAVITY (test code=SPGR) 1.010 1.005-1.030 PH UR (test code=PH) 6.0 4.5-8.0 PROTEIN UR (test code=PU) 3+ NEGATIVE UROBIL UR (test code=UROQ) 0.2 EU/dL 0.2-1.0 NITRITE UR (test code=NITRITE) Negative NEGATIVE BLOOD UR (test code=UA BLOOD) 2+ NEGATIVE LEUK ES UR (test code=LEUK) Negative NEGATIVE WBC UR (test code=UWBC) 0 /HPF 0-3 RBC UR (test code=URBC) 3 /HPF 0-2 EPITH UR (test code=UEPC) NONE /LPF NONE BACTERIA UR (test code=UBACT) NONE /HPF NONE CAST UR (test code=CAST) /LPF NONE CRYSTAL UR (test code=CRYU) / LPF NONE MUCUS UR (test code=MUC) / HPF NONE AMORPH UR (test code=DARRYL) FEW / HPF NONE TRICH UR (test code=UTRICH) /HPF NONE YEAST UR (test code=UY) /HPF NONE SPERM UR (test code=USPERM) /HPF NONE COMPREHENSIVE METABOLIC JANG *WW*2017-09-11 20:03:00 Test Item Value Reference Range Comments GLUCOSE (test code=06D) 117 mg/dL 75-100 SODIUM (test code=01A) 142 mmol/L 136-145 POTASSIUM (test code=01B) 3.6 mmol/L 3.6-5.1 CHLORIDE (test code=04A) 108 mmol/L 98-107 CO2 (test code=02A) 21 mmol/L 22-32 ANION GAP (test code=ANG) 16.6 mmol/L BUN (test code=05D) 10 mg/dL 7-18 CREATININE (test code=03E) 0.9 mg/dL 0.7-1.3 BUN/CREA (test code=BCR) 11 12-20 CALCIUM (test code=09D) 9.7 mg/dL 8.3-9.5 BILI TOTAL (test code=11A) 4.9 mg/dL 0.2-1.0 PROTEIN (test code=07D) 9.1 g/dL 6.4-8.2 ALBUMIN (test code=08D) 5.2 g/dL 3.5-4.8 GLOBULIN (test code=GLB) 3.9 g/dL 1.5-3.8 ALB/GLOB (test code=AGRR) 1.3 1.0-2.6 ALK PHOS (test code=35A) 106 IU/L 42-121 AST (test code=30A) 49 IU/L <=42 ALT (test code=31A) 33 IU/L <=78 RETIC COUNT WW2017-09-11 20:02:00 Test Item Value Reference Range Comments RET% (test code=RET) 27.36 % 0.26-1.60 RET_# (test code=RET#) 0.60 X10\S\6/uL 0.01-0.07 HCT (test code=HCT) 22.5 % 35.0-46.0 RBC (test code=RBC) 2.18 10\S\6/uL 4.30-5.70 RET_COR (test code=RETC) 14.50 % 0.26-1.60
[2018-09-03] MEDS ORDERED: NA CHLORIDE 0.9% 1,000 ML ONE (22:03)
[2018-09-03] MEDS ORDERED: ONDANSETRON 4 MG/2 ML VIAL ONE (22:03)
[2018-09-03] MEDS ORDERED: MORPHINE 4 MG/ML SYR ONE ×2 (22:03→23:53)
[2018-09-03 23:05] LABS: Absolute Lymphocytes (CBC) 4.8 K/uL (0.7-4.9); Absolute Monocytes 1.4 K/uL (0.1-1.3); Absolute Neutrophil 9.9 K/uL (1.8-8.0); Basophils % 0.8 % (0-1.3); Eosinophils % 7.1 % (0-4.4); Lymphocytes % 27.3 % (15.3-44.8); MPV 8.6 fL (7.6-11.3); Monocytes % 8.3 % (3.3-12.3)
[2018-09-03 23:18] LABS: BUN Blood Urea Nitrogen 10 mg/dL (7-18); Bicarbonate 24 mmol/L (21-32); Glucose Level 109 mg/dL (74-106); Potassium 3.9 mmol/L (3.5-5.1); Sodium Level 145 mmol/L (136-145)
[2018-09-03 23:28] LABS: Hematocrit 20.1 % (39.6-49.0)
[2018-09-03 23:29] LABS: Anisocytosis 1+; Blood Morphology Comment NOTED (NOT SEEN); Macrocytosis 1+; Platelet Estimate INCR; Poikilocytosis 1+; Polychromasia 1+; Urine White Blood Cell Casts OK
--- NOTE | 2018-09-04 00:13 | ER ---
Nurse's Notes [facility] Name: Surinder Humphrey Age: 38 yrs Sex: Male : 1980 Arrival Date: 09/03/2018 Time: 19:49 Bed 27 Private MD: Diagnosis: Sickle-cell disorders Presentation: 09/03 20:07 Presenting complaint: Patient states: "I'm having pain in both arms and a little in my aj1 back. I have sickle cell, it just started 2 hours ago." Reports that the pain is similar to his previous sickle cell crisises. Transition of care: patient was not received from another setting of care. Onset of symptoms was September 03, 2018. Risk Assessment: Do you want to hurt yourself or someone else? Patient reports no desire to harm self or others. Initial Sepsis Screen: Does the patient meet any 2 criteria? No. Patient's initial sepsis screen is negative. Does the patient have a suspected source of infection? No. Patient's initial sepsis screen is negative. Care prior to arrival: None. 20:07 Method Of Arrival: Ambulatory aj 20:07 Acuity: SIDDHARTHA 3 aj1 Triage Assessment: 20:09 General: Appears in no apparent distress. uncomfortable, Behavior is cooperative, aj1 restless. Pain: Complains of pain in back, right arm and left arm Pain does not radiate. Pain currently is 8 out of 10 on a pain scale. Neuro: Level of Consciousness is awake, alert, obeys commands, Oriented to person, place, time, situation. Cardiovascular: Patient's skin is warm and dry. Respiratory: Airway is patent Respiratory effort is even, unlabored, Respiratory pattern is regular, symmetrical. 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 - Social history:: Smoking status: Patient/guardian denies using tobacco. - Ebola Screening: : Patient denies travel to an Ebola-affected area in the 21 days before illness onset. Screenin:25 Abuse screen: Denies threats or abuse. Denies injuries from another. Nutritional rv screening: No deficits noted. Tuberculosis screening: No symptoms or risk factors identified. Fall Risk None identified. Assessment: 21:25 General: Appears in no apparent distress. uncomfortable, Behavior is calm, cooperative. rv Pain: Complains of pain in right arm and left arm and back. Neuro: Level of Consciousness is awake, alert, obeys commands, Oriented to person, place, time, situation. Cardiovascular: Capillary refill < 3 seconds. Respiratory: Airway is patent. GI: No signs and/or symptoms were reported involving the gastrointestinal system. : No signs and/or symptoms were reported regarding the genitourinary system. EENT: No signs and/or symptoms were reported regarding the EENT system. Derm: Skin is intact. Musculoskeletal: No signs and/or symptoms reported regarding the musculoskeletal system. 09/04 00:00 Reassessment: Patient appears in no apparent distress at this time. Patient and/or ca1 family updated on plan of care and expected duration. Pain level reassessed. Patient is alert, oriented x 3, equal unlabored respirations, skin warm/dry/pink. Vital Signs: 09/03 20:09 BP 113 / 52; Pulse 83; Resp 18; Temp 98.0(TE); Pulse Ox 99% on R/A; Weight 55.34 kg aj1 (R); Height 5 ft. 6 in. (167.64 cm) (R); Pain 8/10; 21:27 BP 124 / 58 LA Supine; Pulse 84; Resp 18 S; Pulse Ox 97% on R/A; rv 09/04 00:00 BP 102 / 60; Pulse 72; Resp 19; Pulse Ox 95% on R/A; ca1 09/03 20:09 Body Mass Index 19.69 (55.34 kg, 167.64 cm) aj1 ED Course: 09/03 19:49 Patient arrived in ED. es 20:08 Triage completed. aj1 20:09 Arm band placed on Patient placed in an exam room. aj1 21:20 Chari Dunn FNP-C [facility] kb 21:20 Sunny Clayton MD is Attending Physician. kb 21:26 Patient has correct armband on for positive identification. Bed in low position. Call rv light in reach. Side rails up X 1. Pulse ox on. NIBP on. 22:55 Inserted saline lock: 20 gauge in right EJ, using aseptic technique. ,using aseptic ca1 technique. by JAY Segurasteam tender. 09/04 00:25 No provider procedures requiring assistance completed. IV discontinued, intact, ca1 bleeding controlled, No redness/swelling at site. Pressure dressing applied. Administered Medications: 09/03 23:00 Drug: NS 0.9% 1000 ml Route: IV; Rate: 1000 ml; Site: right jugular; rv 09/04 00:20 Follow up: Response: No adverse reaction; IV Status: Completed infusion ca1 09/03 23:00 Drug: morphine 4 mg Route: IVP; Site: right jugular; rv 09/04 00:00 Follow up: Response: No adverse reaction; Pain is decreased ca1 09/03 23:00 Drug: Zofran 4 mg Route: IVP; Site: right jugular; rv 09/04 00:00 Follow up: Response: No adverse reaction; Nausea is decreased ca1 Outcome: 00:13 Discharge ordered by . echo 00:26 Discharged to home ambulatory. ca1 00:26 Condition: stable 00:26 Discharge instructions given to patient, Instructed on discharge instructions, follow up and referral plans. medication usage, Demonstrated understanding of instructions, follow-up care, medications, Prescriptions given X 1. 00:27 Patient left the ED. ca1 Signatures: Chari Dunn, OLEG-C CONCESSION WORKER-Nell Coy RN RN aj1 Holly Benson Ronaldo RN RN rv Char Bunch RN RN ca1 Corrections: (The following items were deleted from the chart) 09/03 20:10 20:09 BP 113 / 52; Pulse 83bpm; Resp 18bpm; Pulse Ox 99% RA; Temp 32.0F; 55.34 kg aj1 Reported; Height 5 ft. 6 in. Reported; BMI: 19.6; Pain 8/10; aj1 09/04 00:29 09/03 23:30 Inserted saline lock: 20 gauge in right EJ, using aseptic technique. ,using ca1 aseptic technique. by JAY Segurasteam tender ca1
--- NOTE | 2018-09-04 00:14 | EDPHYS ---
Physician Documentation [facility] Name: Surinder Humphrey Age: 38 yrs Sex: Male : 1980 Arrival Date: 09/03/2018 Time: 19:49 Bed 27 Private MD: ED Physician Sunny Clayton HPI: 09/03 22:07 This 38 yrs old Male presents to ER via Ambulatory with complaints of Sickle kb Cell Crisis. 22:09 Pt reports he is having a sickle cell crisis. c/o pain to bilateral arms and back which kb is normal for a crisis for him. Onset: The symptoms/episode began/occurred today. Severity of symptoms: At their worst the symptoms were moderate in the emergency department the symptoms are unchanged. The patient has experienced similar episodes in the past. The patient has not recently seen a physician. 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 - Social history:: Smoking status: Patient/guardian denies using tobacco. - Ebola Screening: : Patient denies travel to an Ebola-affected area in the 21 days before illness onset. ROS: 22:07 Constitutional: Negative for fever, chills, and weight loss, Cardiovascular: Negative kb for chest pain, palpitations, and edema, Respiratory: Negative for shortness of breath, cough, wheezing, and pleuritic chest pain, Abdomen/GI: Negative for abdominal pain, nausea, vomiting, diarrhea, and constipation, Skin: Negative for injury, rash, and discoloration, Neuro: Negative for headache, weakness, numbness, tingling, and seizure. 22:07 MS/extremity: Positive for pain, of the back, right arm and left arm. Exam: 22:07 Constitutional: This is a well developed, well nourished patient who is awake, alert, kb and in no acute distress. Head/Face: Normocephalic, atraumatic. Chest/axilla: Normal chest wall appearance and motion. Nontender with no deformity. No lesions are appreciated. Cardiovascular: Regular rate and rhythm with a normal S1 and S2. No gallops, murmurs, or rubs. Normal PMI, no JVD. No pulse deficits. Respiratory: Lungs have equal breath sounds bilaterally, clear to auscultation and percussion. No rales, rhonchi or wheezes noted. No increased work of breathing, no retractions or nasal flaring. Abdomen/GI: Soft, non-tender, with normal bowel sounds. No distension or tympany. No guarding or rebound. No evidence of tenderness throughout. Skin: Warm, dry with normal turgor. Normal color with no rashes, no lesions, and no evidence of cellulitis. MS/ Extremity: Pulses equal, no cyanosis. Neurovascular intact. Full, normal range of motion. Neuro: Awake and alert, GCS 15, oriented to person, place, time, and situation. Cranial nerves II-XII grossly intact. Motor strength 5/5 in all extremities. Sensory grossly intact. Cerebellar exam normal. Normal gait. Vital Signs: 20:09 BP 113 / 52; Pulse 83; Resp 18; Temp 98.0(TE); Pulse Ox 99% on R/A; Weight 55.34 kg aj1 (R); Height 5 ft. 6 in. (167.64 cm) (R); Pain 8/10; 21:27 BP 124 / 58 LA Supine; Pulse 84; Resp 18 S; Pulse Ox 97% on R/A; rv 09/04 00:00 BP 102 / 60; Pulse 72; Resp 19; Pulse Ox 95% on R/A; ca1 09/03 20:09 Body Mass Index 19.69 (55.34 kg, 167.64 cm) aj MDM: 09/03 21:20 Patient medically screened. kb 22:07 Data reviewed: vital signs, nurses notes. Data interpreted: Pulse oximetry: on room air kb is 97 %. Interpretation: normal. 23:42 ED course: Discussed diagnostic results with pt and ERP. Pt reports Hemoglobin of 7.1 kb is normal for him. All in agreement that pt can be discharged with outpatient follow up. Pt has no chest pain, shortness of breath or fever. Will return if symptoms worsen or if chest pain, shortness of breath or fever develop. Pt reports this is a normal crisis for him and that it was triggered by walking into a walk-in freezer. . 09/04 00:12 Counseling: I had a detailed discussion with the patient and/or guardian regarding: the kb historical points, exam findings, and any diagnostic results supporting the discharge/admit diagnosis, lab results, the need for outpatient follow up, a family practitioner, to return to the emergency department if symptoms worsen or persist or if there are any questions or concerns that arise at home. 09/03 21:42 Order name: CBC with Diff kb 09/03 21:42 Order name: Basic Metabolic Panel kb 09/03 21:42 Order name: Retic Count kb 09/03 21:42 Order name: CBC with Automated Diff; Complete Time: 23:32 EDMS 09/03 21:42 Order name: Basic Metabolic Panel; Complete Time: 23:21 EDMS 09/03 21:42 Order name: Retic Count; Complete Time: 23:32 EDMS 09/03 21:42 Order name: IV Start; Complete Time: 23:20 kb 09/03 23:29 Order name: CBC Smear Scan; Complete Time: 23:32 EDMS Administered Medications: 09/03 23:00 Drug: NS 0.9% 1000 ml Route: IV; Rate: 1000 ml; Site: right jugular; rv 09/04 00:20 Follow up: Response: No adverse reaction; IV Status: Completed infusion ca1 09/03 23:00 Drug: morphine 4 mg Route: IVP; Site: right jugular; rv 09/04 00:00 Follow up: Response: No adverse reaction; Pain is decreased ca1 09/03 23:00 Drug: Zofran 4 mg Route: IVP; Site: right jugular; rv 09/04 00:00 Follow up: Response: No adverse reaction; Nausea is decreased ca1 Disposition: 09/04/18 00:13 Discharged to Home. Impression: Sickle-cell disorders. - Condition is Stable. - Discharge Instructions: Sickle Cell Anemia, Adult, [id number]. - Prescriptions for Tylenol- Codeine #3 300-30 mg Oral Tablet - take 2 tablets by ORAL route every 6 hours As needed; 16 tablet. - Medication Reconciliation Form, Thank You Letter, Antibiotic Education, Prescription Opioid Use form. - Follow up: Emergency Department; When: As needed; Reason: Worsening of condition. Follow up: Private Physician; When: 2 - 3 days; Reason: Recheck today's complaints, Continuance of care, Re-evaluation by your physician. Addendum: 09/06/2018 19:35 Co-signature as Attending Physician, Sunny Clayton MD. g s Signatures: Dispatcher [employer] EDMS Chari Dunn, PAINTER SPRAY-C PAINTER SPRAY-Nell Coy RN RN aj1 Sunny Clayton MD MD Bi Castillo RN RN rv AcobChar RN RN ca1 Corrections: (The following items were deleted from the chart) 09/04 00:27 00:13 09/04/2018 00:13 Discharged to Home. Impression: Sickle-cell disorders. Condition ca1 is Stable. Forms are Medication Reconciliation Form, Thank You Letter, Antibiotic Education, Prescription Opioid Use. Follow up: Emergency Department; When: As needed; Reason: Worsening of condition. Follow up: Private Physician; When: 2 - 3 days; Reason: Recheck today's complaints, Continuance of care, Re-evaluation by your physician. kb
== END 2018-09-04 00:27 | disposition home or self-care (01) ==
LOC: ER 19:46
DX: D57.1 Sickle-cell disease without crisis (principal); M79.602 Pain in left arm; M79.601 Pain in right arm; M54.9 Dorsalgia, unspecified
CPT/HCPCS: 96361; 85025; 80048; 36415; 85044; 96375; 96374; 99284; J7030; J2405